=== PATIENT | male | born 1950 | race Caucasian/White ===

== ENCOUNTER 2017-07-17 06:39 | Day surgery (SDC) | payer MEDICARE, SELFPAY ==
[2017-07-17] VITALS (10 sets, daily range): BP systolic 105–147; BP diastolic 67–75; PULSE 70–86; RESP 16; TEMP 36.5–36.9; O2SAT 93–97; BMI 28.6
--- NOTE | 2017-07-17 07:53 | PCM.DC.APPY ---
Discharge Diet: No Restrictions Discharge Activity: Return to Normal Activity Call your doctor if your incision/area has: Continuous Slow Oozing, Sudden Increased Bleeding, Increased Pain/ Swelling, Increased Redness, Foul Smelling Discharge Call your doctor if you observe: Fever of 101 or Higher Medications to take at Discharge Oxycodone HCl/Acetaminophen [Percocet 5/325] 1 - 2 tablet PO Q4H PRN PRN 7 Days #15 tablet 07/17/17 Oxycodone HCl/Acetaminophen [Percocet 5/325] 1 - 2 tablet PO Q4H PRN PRN 7 Days #15 tablet 07/17/17 Allergies/Adverse Reactions: Allergies No Known Allergies Allergy (Verified 07/11/17 13:38) The following prescriptions were given: Oxycodone HCl/Acetaminophen [Percocet 5/325] 1 - 2 tablet PO Q4H PRN PRN 7 Days #15 tablet PRN Reason: Pain Oxycodone HCl/Acetaminophen [Percocet 5/325] 1 - 2 tablet PO Q4H PRN PRN 7 Days #15 tablet PRN Reason: Pain Primary Care Physician: Yunier Quinn MD [Primary Care Provider] - Please Follow Up With: Darryl Shirley MD When: call tomorrow to make 2 week follow up appt [phone]
--- NOTE | 2017-07-17 08:00 | MASS_PTH ---
PATIENT: ALON MURPHY [place] [facility] [place][id number] AGE/SX: 66/M ROOM: RE07/17/[address]: Dr. Darryl Shirley MD : 1950 BED: DIS: 07/17/2017 SPEC #: [id number] RECD: 07/17/17 10:32 STATUS: JESSE RELewis #: [id number] LIZETH: 07/17/17 08:[address]: Darryl Shirley DEPT: SURGICAL PATHOLOGY RECD BY: Nico Patterson ENTERED: 07/17/17 13:13 SP TYPE: Mass OTHR DR: Dr. Yunier Quinn MD Tissues: Back, NOS Procedures: Surgery Specimen Level IV HEADER OPERATION: Excision subcutaneous mass, right lower back PRE-OP DIAGNOSIS: Subcutaneous mass, right lower back; right-sided low back pain without sciatica TISSUE SUBMITTED: Subcutaneous mass, right lower back MICROSCOPIC DIAGNOSIS Subcutaneous mass, right lower back, excision: Mature adipose tissue, consistent with lipoma. SAMSON:indra 07/18/17 MICROSCOPIC DESCRIPTION Slides are reviewed. GROSS DESCRIPTION Received in fixative is one container labeled with the patient's name and designated subcutaneous mass, right lower back. The specimen consists of five variable size pieces of yellow adipose soft tissue that in aggregate measure 3.5 x 4 x 1.5 cm. Sections reveal yellow adipose cut surfaces without area of hemorrhage, cystic degeneration or necrosis. Director Of [employer] sections are submitted in two cassettes. / SAMSON:indra 07/17/17 TC:1 CPT: 96355
--- NOTE | 2017-07-17 08:17 | PCM.OPRPT ---
Problem List (1) Localized swelling, mass and lump, trunk Status: Acute Report of Operation Date of Procedure: 07/17/17 Pre-Operative Diagnosis: Right lower back subcutaneous mass Post-Operative Diagnosis: Same Surgery/Procedure Performed:: Excision of subcutaneous right lower back mass, deep Specimen's removed: Right lower back subcutaneous mass, 4-5 cm Description of Procedure: The patient was brought back to the operating room and placed in the left lateral decubitus position. Next MAC anesthesia was induced and the right lower back was prepped and draped in usual sterile fashion. An incision site was marked and then anesthetized with Marcaine. Next an incision was made and carried down to the deep fascia. The mass was encountered and dissected free using electrocautery and removed. It measured about 4 cm. There was also deep to the dermal fascia. the cavity was irrigated and suctioned dry. Hemostasis was obtained using electrocautery. Next the deep dermal tissue was closed with interrupted 3-0 Vicryl sutures. The skin was closed with a running 4-0 Monocryl suture and Steri-Strips. Bandages were then applied. The patient tolerated the procedure well and was brought to PACU in stable condition.
== END 2017-07-17 09:45 | disposition home or self-care (01) ==
LOC: SDC 06:40 → AC 06:42
PROVIDERS: Family Provider Family Medicine; PCP Family Medicine; Visit Provider Surgery
PROC: (CPT 11404; principal; 2017-07-17 07:45)
DX: D17.1 Benign lipomatous neoplasm of skin and subcutaneous tissue of trunk (principal); M19.90 Unspecified osteoarthritis, unspecified site
CPT/HCPCS: 11404; 12032; 88305; J7120; J2405

== ENCOUNTER → 2019-01-08 | Outpatient (CLI) | payer MEDICARE, SELFPAY ==
--- NOTE | 2019-01-08 15:01 | RAD_ITS ---
STUDY: X-RAY - CERVICAL SPINE REASON FOR EXAM: Male, 68 years old. Radiculopathy. TECHNIQUE: 6 view(s) of the cervical spine were obtained. COMPARISON: None FINDINGS: Normal anterior atlantoaxial articulation. Normal odontoid process. Normal cervical lordosis. There is mild endplate spondylosis and disc space narrowing most marked in the lower cervical spine. There is no evidence of acute fracture or loss of vertebral axial height. Normal visualized intervertebral neuroforamina. There is maintenance of normal alignment. The soft tissue structures are unremarkable. RAD/Cerv Spine 4 or 5 Views IMPRESSION: Degenerative changes of the lower cervical spine. Electronically Signed: Reginald Mccall DO at 18:15 EDT Tel [phone], Service support ,
== END | disposition home or self-care (01) ==
LOC: HPRAD 14:56
PROVIDERS: Family Provider Family Medicine; PCP Family Medicine; Referring Provider Family Medicine; Visit Provider Family Medicine
DX: M54.12 Radiculopathy, cervical region (principal); E11.9 Type 2 diabetes mellitus without complications; E78.5 Hyperlipidemia, unspecified
CPT/HCPCS: 36415; 72050; 80053; 84439; 84443; 85025

== ENCOUNTER → 2019-01-08 | Outpatient (CLI) | payer MEDICARE, SELFPAY ==
[2019-01-08 15:46] LABS: Absolute Lymphocyte Count 1.48 X10^3/uL (0.83-4.51); Basophil# 0.03 X10^3/uL; Basophil% 0.4 % (0-1); Eosinophil# 0.12 X10^3/uL; Eosinophils% 1.6 % (0-5); Hematocrit 45.6 % (40-54); Hemoglobin 14.5 g/dL (13.0-16.5); Lymphocyte # 1.48 X10^3/ul (4.0); Lymphocyte % 20.3 % (19-41); Mean Corp Hgb Conc 31.8 g/dL (32-36); Mean Corpuscular Volume 88.2 fL (80-94); Mean Platelet Vol. 9.4 fl (6.2-12.0); Monocyte# 0.63 X10^3/uL; Monocyte% 8.6 % (0-10); NRBC Flagged by Analyzer 0 % (0-5); Neutrophil % 68.7 % (47-70); Platelet Count 323 K/mm3 (150-450); RBC Distribution Width CV 12.8 % (11.6-14.6); RBC Distribution Width SD 41.6 fl (35.1-43.9); Red Blood Count 5.17 M/mm3 (4.6-6.2); White Blood Count 7.3 K/mm3 (4.4-11.0)
[2019-01-08 16:20] LABS: ALB/GLOB Ratio 0.9 RATIO (0.9-2.4); AST(SGOT) 16 U/L (15-37); Alanine Aminotransfer ALT/SGPT 19 U/L (16-61); Albumin, Serum 3.7 g/dL (3.2-5.0); Alkaline Phosphatase 81 U/L (45-117); Anion Gap 7 (5-15); BUN 23 mg/dL (7-18); BUN/Creat Ratio 16.2 RATIO (10-20); Calcium,Total 8.9 mg/dL (8.5-10.1); Chloride 109 mmol/L (98-107); Creatinine, Serum 1.42 mg/dL (0.70-1.30); EST Glomerular Filtration Rate 53 mL/min (>60); Est Glom Filt Rate - Afr Amer 64 mL/min (>60); Globulin 4.3 g/dL (2.2-4.2); Glucose 105 mg/dL (74-106); Potassium 3.8 mmol/L (3.5-5.1); Sodium Level 141 mmol/L (136-145); T4 Free Direct 1.13 ng/dL (0.76-1.46); Thyroid Stim Hormone (TSH) 0.93 uIU/mL (0.358-3.74)
== END | disposition home or self-care (01) ==
LOC: BFHLAB 14:17
PROVIDERS: Family Provider Family Medicine; PCP Family Medicine; Visit Provider Family Medicine
DX: E78.5 Hyperlipidemia, unspecified (principal)
CPT/HCPCS: 36415; 80053; 84439; 84443; 85025

== ENCOUNTER 2019-04-22 10:30 | Outpatient (RCR) | payer MEDICARE, SELFPAY ==
--- NOTE | 2019-03-21 11:31 | HP.PTEVAL ---
Patient's Visit Information ALON MURPHY is a 68 year old M referred to Physical Therapy by Yunier Quinn MD with a diagnosis of NECK PAIN. Date of Evaluation: 03/20/19 Physical Therapist: Rebeka Hummel PT, Cert MDT - Visit Plan Frequency: 1-2x /Week Duration: 4-6 Weeks Plan: US, POSTURE CORRECTION/STRENGTHENING, INSTRUCTION IN APPROPRIATE BODY MECHANICS AND ACTIVITY MODIFICATIONS. BENJIE UE ROM, STRETCHING AND STRENGTHENING. HEP INSTRUCTION. CONSIDER TRACTION. - Subjective Findings: Work/Leisure: RETIRED. [employer] OF [email or web address] IN [place]. WAS A [employer]. 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 Disability: NO. Present symptoms: BENJIE HAND NUMBNESS AND TINGLING. HANDS ALSO FEEL WEAK. HAND NUMBNESS VARIES IN INTENSITY BUT CONSTANT. WORSE AT NIGHT AFTER SLEEPING A COUPLE HOURS ON EITHER SIDE. Present since: ABOUT 6 MONTHS. Pain Scale: N/A. Currently: N/A. WORSENING. SX'S IN HANDS HAVE BECOME CONSTANT IN LAST FEW WEEKS. Commenced as a result of: SLEEPING ON EITHER SIDE. CAME ON GRADUAL. Symptoms at onset: BENJIE THUMB FINGER THAT PROGRESSED TO THE REST OF HANDS. Worse: SLEEPING ON EITHER SIDE. NIGHT IS THE WORST. Better: SLEEPING ON BACK, UP AND ACTIVE. Disturbed sleep: YES. Previous history/Previous treatment: UNREMARKABLE. Dizziness: NO. Tinnitis: NO. Nausea: NO. Shortness of Breath: NO. Difficulty Swollowing: NO. Gait: NORMAL. Accidents: UNREMARKABLE. Unexplained weight loss: NO. Imaging: NECK X-RAY - Normal anterior atlantoaxial articulation. Normal odontoid process. Normal cervical lordosis. There is mild endplate spondylosis and disc. space narrowing most marked in the lower cervical spine. There is no. evidence of acute fracture or loss of vertebral axial height. Normal. visualized intervertebral neuroforamina. There is maintenance of normal. alignment. The soft tissue structures are unremarkable. RAD/Cerv Spine 4 or 5 Views. IMPRESSION: Degenerative changes of the lower cervical spine. PMH/Recent major surgery: LEFT ELBOW CRUSH INJURY IN HIGH [employer]CHO[employer] - ELBOW FLEX TO ABOUT 90 DEG NOW. OTHER: NEUROMUSCULAR SPECIALIST VISIT IN [place] FOR MASSAGE, STRETCHING AND STRENGTHENING THAT DID NOT HELP ABOUT 6 WEEKS AGO. - Objective Sitting Posture/Standing Posture: POOR. FH. RS. VERY SLOUCHED IN SITTING. Active Correction of posture: NE. Other Observations: INDEP GAIT AND TRANSFERS. Motor deficit: BENJIE UE'S 5/5 WITH MMT'ING AND BENJIE DATA PROCESSING MECHANIC STRENGTH 75 LBS. PATIENT IS RIGHT HAND DOMINANT. Sensory deficit: BENJIE UE LIGHT TOUCH SENSTATION IS INTACT AND SYMMETRICAL. ROM deficit: BENJIE UE'S WFL - LEFT ELBOW LIMITED FLEX FROM OLD INJURY. Reflexes: UNABLE TO ELICIT BENJIE UE DTR'S. Dural Signs: POSITIVE BENJIE UE'S. Cervical Mvmt Loss: Flex: NIL. Pro: NIL. Ext: MOD. Ret: MOD. RSB: MOD. LSB: MOD. R Rot: MIN. L Rot: MIN. Postural strength: POOR. CERVICAL DISTRACTION: MIN DECREASED BENJIE HAND SX'S. - Goals Goal 1:: DECREASE C/O BENJIE HAND SX'S. Goal Time Frame: 4-6 Weeks Goal 2:: IMPROVE SLEEP FUNCTION Goal Time Frame: 4-6 Weeks Goal 3:: INSTRUCT IN PROPHYLAXIS Goal Time Frame: 4-6 Weeks - Rehabilitation Potential Rehabilitation Potential: Fair - Anticipated Interventions Patient/Client Instruction: Educate patient on: Condition, Plan of Care, Risk Factors, Benefits of Fitness Program For the Purpose of:: To improve self management Therapeutic Exercise to Include: Strength training, Endurance training, Body mechanics, Postural training, Scapular Strength/Stabilization For the Purpose of:: To decrease pain, To increase ROM, To improve muscle performance and motor function, To increase tolerance to activity/condition/position, To improve ability of physical actions for home/community/work/leisure Ultrasound (thermal/non thermal): Yes For the Purpose of:: To decrease pain, To decrease swelling/inflammation, To improve nutrient delivery to tissue Thank you for the opportunity to evaluate your patient. For Medicare and Medicare HMO plans, please review the plan of care and approve it. It will need to be FAXED BACK to us at [phone] for Medicare purposes. For Medicare only, by signing this I certify the plan of care. Please let me know if there are questions or concerns regarding this plan of care. Physician Signature: Date:
--- NOTE | 2019-07-11 15:14 | HP.PTDCNRP_ITS ---
ALON Genet ASHLEYSally was seen in my office for initial evaluation on 03/20/19. The following Plan of Care was established for this patient: Initial Frequency: 1-2x /Week Initial Duration: 4-6 Weeks Patient/Client Instruction: Educate patient on: Condition, Plan of Care, Risk Factors, Benefits of Fitness Program For the Purpose of:: To improve self management Therapeutic Exercise to Include: Strength training, Endurance training, Body mechanics, Postural training, Scapular Strength/Stabilization For the Purpose of:: To decrease pain, To increase ROM, To improve muscle performance and motor function, To increase tolerance to activity /condition/position, To improve ability of physical actions for home/community/work/leisure Ultrasound (thermal/non thermal): Yes For the Purpose of:: To decrease pain, To decrease swelling/inflammation, To improve nutrient delivery to tissue This patient was last seen in our office 04/22/19. Pertinent comments regarding their Physical therapy will appear below: This patient has not returned to Physical Therapy and is appropriate to return to MD for further follow-up as needed. At this point I will be discontinuing this patient from physical therapy. I would be happy to see this patient again in the future if found appropriate by the physician. Thank you! Rebeka Hummel, PT, Cert MDT
== END 2019-04-22 19:00 | disposition home or self-care (01) ==
LOC: PT 10:30
PROVIDERS: Family Provider Family Medicine; PCP Family Medicine; Referring Provider Family Medicine; Visit Provider Family Medicine
DX: M50.30 Other cervical disc degeneration, unspecified cervical region (principal)
CPT/HCPCS: 97012; 97035; 97110; 97140; 97162; 97530

== ENCOUNTER → 2019-09-09 08:16 | Outpatient (CLI) | payer MEDICARE, SELFPAY ==
[2017-07-17 07:18] VITALS: BMI 28.6
[2019-09-09 10:15] LABS: Hemoglobin A1c 7.1 % (3.8-5.6)
== END ==
PROVIDERS: PCP Family Medicine; Referring Provider Physician Assistant; Visit Provider Physician Assistant
DX: E11.9 Type 2 diabetes mellitus without complications (principal)
CPT/HCPCS: 36415; 83036

== ENCOUNTER → 2022-07-11 | Outpatient (CLI) | payer MEDICARE, SELFPAY ==
[2022-07-11 17:57] LABS: Absolute Lymphocyte Count 1.38 X10^3/uL (0.83-4.51); Absolute Neutrophil Count 4.4 X10^3/uL (2.0-7.7); Basophil# 0.04 X10^3/uL; Basophil% 0.6 % (0-1); Eosinophil# 0.32 X10^3/uL; Eosinophils% 4.7 % (0-5); Hematocrit 43.7 % (40-54); Hemoglobin 13.8 g/dL (13.0-16.5); Lymphocyte # 1.38 X10^3/ul (0.83-4.51); Lymphocyte % 20.1 % (19-41); Mean Corp Hgb Conc 31.6 g/dL (32-36); Mean Corpuscular Hgb 28.6 pg (27.0-32.0); Mean Corpuscular Volume 90.7 fL (80-94); Mean Platelet Vol. 9.8 fl (6.2-12.0); Monocyte# 0.71 X10^3/uL; Monocyte% 10.3 % (0-10); NRBC Flagged by Analyzer 0 % (0-5); Neutrophil # 4.39 X10^3/uL (2.7-7.7); Neutrophil % 63.9 % (47-70); Platelet Count 291 K/mm3 (150-450); RBC Distribution Width CV 12.9 % (11.6-14.6); RBC Distribution Width SD 42.7 fl (35.1-43.9); Red Blood Count 4.82 M/mm3 (4.6-6.2); White Blood Count 6.9 K/mm3 (4.4-11.0)
[2022-07-11 18:51] LABS: Hemoglobin A1c 7.4 % (3.8-5.6)
[2022-07-11 18:53] LABS: ALB/GLOB Ratio 0.9 RATIO (0.9-2.4); AST(SGOT) 21 U/L (15-37); Alanine Aminotransfer ALT/SGPT 28 U/L (16-61); Albumin, Serum 3.6 g/dL (3.2-5.0); Alkaline Phosphatase 85 U/L (45-117); Anion Gap 5 (5-15); BUN 25 mg/dL (7-18); BUN/Creat Ratio 16.8 RATIO (10-20); Calcium,Total 9.5 mg/dL (8.5-10.1); Chloride 106 mmol/L (98-107); Cholesterol 143 mg/dL (200); Creatinine, Serum 1.49 mg/dL (0.70-1.30); EST Glomerular Filtration Rate 49 mL/min (>60); Est Glom Filt Rate - Afr Amer 60 mL/min (>60); Globulin 3.9 g/dL (2.2-4.2); Glucose 134 mg/dL (74-106); High Density Lipoprotein 42 mg/dL; PSA,Total - Annual Screen 6.13 ng/mL (0.00-4.00); Potassium 4.2 mmol/L (3.5-5.1); Protein, Total 7.5 g/dL (6.4-8.2); Sodium Level 138 mmol/L (136-145); Triglycerides 113 mg/dL; Very Low Density Lipoprotein 23 mg/dL (5-40)
[2022-07-11 19:01] LABS: Microalbumin,Random Urine 40.7 mg/L (NO RANGE EST.); Microalbumin:Creatinine Ratio 44.1 mg/g CRE (<30 mg/g CRE)
== END | disposition home or self-care (01) ==
LOC: BFHLAB 14:35
PROVIDERS: PCP Family Medicine; Referring Provider Family Medicine; Visit Provider Family Medicine
DX: R31.9 Hematuria, unspecified (principal); E11.9 Type 2 diabetes mellitus without complications; E78.5 Hyperlipidemia, unspecified; Z12.5 Encounter for screening for malignant neoplasm of prostate
CPT/HCPCS: 36415; 80053; 80061; 82043; 82570; 83036; 84153; 85025; 87086; G0103

== ENCOUNTER → 2022-07-18 | Outpatient (CLI) | payer MEDICARE, SELFPAY ==
--- NOTE | 2022-07-18 07:14 | CT_ITS ---
STUDY: CT ABDOMEN AND PELVIS WITHOUT CONTRAST REASON FOR EXAM: Male, 71 years old. Intermittent gross hematuria for 5 weeks. History of prostatic enlargement and kidney stones. RADIATION DOSAGE (If Supplied By Facility): CTDIvol = ( 15.27 ) mGy, DLP = ( 820.37 ) mGycm TECHNIQUE: Transaxial images were obtained from the dome of the diaphragm to the symphysis pubis without oral contrast, and without intravenous contrast. Sagittal and coronal images were reconstructed. Individualized dose optimization techniques were used for this CT. COMPARISON: None. FINDINGS: Minimal increased linear markings in the posterior medial segment of the right lower lobe suggests some mild scarring. Tiny calcified granuloma in the posterior medial aspect of the right lower lobe. The visualized portions of the heart are within normal limits. Normal liver. Normal gallbladder and extrahepatic biliary system. Normal spleen. Normal pancreas. Normal bilateral adrenal glands. Questionable 1.2 cm cyst in the posterior midportion of the right kidney. 2 mm nonobstructive calculus in the upper pole calyx of the left kidney. I suspect a 1.5 cm cyst in the posterior midportion of the left kidney. There is a small hiatal hernia. Normal small intestine. There are multiple colonic diverticula consistent with diverticulosis. The appendix is visualized and appears normal. There is scattered atherosclerotic calcification of the abdominal aorta, without a demonstrated aneurysm. Normal inferior vena cava. Normal retroperitoneum. Normal urinary bladder. There is enlargement of the prostate gland. It measures 4.9 cm x 4.9 cm. This causes an indentation at the bladder base. Calcified phleboliths are seen in the pelvis. There is a right-sided inguinal hernia containing adipose tissue. There are degenerative changes of the visualized lumbar spine. Grade 1 anterolisthesis of L5 on S1 with spondylolysis of the pars interarticularis of the L5 vertebrae. CT/Abdomen/Pelvis without Cont IMPRESSION: Findings suggestive of small bilateral renal cysts are 2 mm nonobstructive calculus in the right kidney. Prostatic enlargement. Electronically Signed: Roberto Zamora MD at 14:54 EDT ,
== END | disposition home or self-care (01) ==
LOC: CT 07:12
PROVIDERS: PCP Family Medicine; Visit Provider Family Medicine
DX: R31.9 Hematuria, unspecified (principal)
CPT/HCPCS: 74176

== ENCOUNTER → 2023-04-23 | Outpatient (CLI) | payer MEDICARE, SELFPAY ==
[2023-04-23 12:20] LABS: Absolute Neutrophil Count 3.6 X10^3/uL (2.0-7.7); Basophil# 0.03 X10^3/uL; Basophil% 0.5 % (0-1); Eosinophils% 5.2 % (0-5); Hematocrit 46.1 % (40-54); Hemoglobin 14.2 g/dL (13.0-16.5); Lymphocyte % 20.9 % (19-41); Mean Corp Hgb Conc 30.8 g/dL (32-36); Mean Corpuscular Volume 90.7 fL (80-94); Mean Platelet Vol. 9.8 fl (6.2-12.0); Monocyte# 0.56 X10^3/uL; Monocyte% 9.8 % (0-10); NRBC Flagged by Analyzer 0 % (0-5); Neutrophil # 3.63 X10^3/uL (2.7-7.7); Neutrophil % 63.4 % (47-70); Platelet Count 300 K/mm3 (150-450); RBC Distribution Width CV 13.2 % (11.6-14.6); RBC Distribution Width SD 43.9 fl (35.1-43.9); Red Blood Count 5.08 M/mm3 (4.6-6.2); White Blood Count 5.7 K/mm3 (4.4-11.0)
[2023-04-23 13:10] LABS: ALB/GLOB Ratio 0.9 RATIO (0.9-2.4); AST(SGOT) 22 U/L (15-37); Alanine Aminotransfer ALT/SGPT 28 U/L (16-61); Albumin, Serum 3.5 g/dL (3.2-5.0); Alkaline Phosphatase 99 U/L (45-117); Anion Gap 3 (5-15); BUN 24 mg/dL (7-18); BUN/Creat Ratio 15.2 RATIO (10-20); Calcium,Total 9.5 mg/dL (8.5-10.1); Chloride 109 mmol/L (98-107); Cholesterol 146 mg/dL (200); Creatinine, Serum 1.58 mg/dL (0.70-1.30); EST Glomerular Filtration Rate 46 mL/min (>60); Est Glom Filt Rate - Afr Amer 56 mL/min (>60); Glucose 123 mg/dL (74-106); High Density Lipoprotein 44 mg/dL; Potassium 4.6 mmol/L (3.5-5.1); Protein, Total 7.5 g/dL (6.4-8.2); Sodium Level 140 mmol/L (136-145); Triglycerides 103 mg/dL; Very Low Density Lipoprotein 21 mg/dL (5-40)
[2023-04-23 14:17] LABS: Hemoglobin A1c 7.1 % (3.8-5.6)
== END | disposition home or self-care (01) ==
LOC: BFHLAB 08:40
PROVIDERS: PCP Family Medicine; Visit Provider Family Medicine
DX: E78.5 Hyperlipidemia, unspecified (principal); E11.22 Type 2 diabetes mellitus with diabetic chronic kidney disease; N18.31 Chronic kidney disease, stage 3a
CPT/HCPCS: 36415; 80053; 80061; 83036; 85025

== ENCOUNTER 2024-03-07 14:55 | Emergency (ER) | payer MEDICARE, SELFPAY ==
[2024-03-07 14:56] VITALS: BP 164/88; PULSE 88; RESP 18; TEMP 36.3; O2SAT 97; BMI 27.6
[2024-03-07] MEDS: Diphth,Pertuss(Acell),Tet Vac 0.5 ML Vial IM (15:56)
[2024-03-07] MEDS: Ibuprofen 200 MG Tablet 400 MG PO (15:56)
--- NOTE | 2024-03-07 15:58 | EDS_ITS ---
HPI History of Present Illness Chief Complaint: Laceration Informant: patient Narrative Narrative: Patient is a [id number] male not any blood thinners presenting with left index finger laceration. Patient was using a table saw when he accidentally cut end of his left index finger. This happened around approximately 230 this afternoon. Denies associated numbness or tingling. Does have some associated pain but states it is mild. Did not take anything for pain prior to arrival. No other complaints or concerns reported at this time. Bleeding is currently controlled. Tetanus Immunization: Unknown [facility] Medical History (Updated 03/07/24 @ 16:[address] Mary Wagoner DO) Osteoarthritis Allergy/AdvReac Type Severity Reaction Status Date / Time No Known Allergies Allergy Verified 03/07/24 14:56 Family History Mother Hypertension Brother Cancer renal cancer Surgical History S/P excision of lipoma Status post prostatectomy S/P hernia repair S/P colonoscopy Social History Smoking Status: Never smoker ROS ROS ED Constitutional Constitutional ED: Denies chills or fever(s) Gastrointestinal Gastrointestinal: Denies nausea Musculoskeletal Musculoskeletal: Reports other Details: Left index finger pain Integumentary Reports other Details: Left index finger laceration Neurologic Neurologic: Denies paresthesias or weakness Hematologic/Lymphatic Hematologic/Lymphatic: Denies easy bleeding or easy bruising EXAM Physical Exam Const Vital Signs: 03/07/24 14:56 Temperature 97.4 F L Temperature Source Temporal Pulse Rate 88 Respiratory Rate 18 Blood Pressure 164/88 H Blood Pressure Mean 113 Pulse Ox 97 Oxygen Delivery Method Room Air Positive well nourished and well developed General Appearance ED: well developed and NAD HEENT Reports moist mucous membranes Chest Wall inspection of chest normal Cardio regular rate and regular rhythm Cardio Narrative: 2+ radial pulses Extremity Extremity Narrative: Normal range of motion of the left index finger. Normal extensor and flexion mechanisms. Neuro oriented x3, no focal motor deficits and no sensory deficits noted Sensorium / Orientation: alert Motor Exam: muscle tone normal throughout Psych mental status grossly normal Skin Skin Narrative: Full-thickness avulsion injury along the distal aspect of the left index finger involving the distal phalanges and cut into the distal aspect of the nail but no involvement of the nail bed. No active bleeding at this time. No bony exposure present. No foreign bodies appreciated. MDM MDM MDM Narrative Medical decision making narrative: Patient is evaluated for left index finger laceration. Is an avulsion injury. Is not amenable to any suture repair. Bleeding is currently controlled. Will obtain x-ray to ensure there is no bony involvement. Will cleanse the wound with antiseptic soak and apply bacitracin ointment as well as an adhesive dressing. Tetanus is updated. Patient given dose of Motrin in the emergency room. Discussed generalized wound care and general course of healing for this. Discussed return precautions as well as signs of infection. Encouraged to follow-up with his primary care doctor for wound check next week. X-ray viewed by myself as well as radiology does not show any acute fracture. Discharge Plan Triage Chief Complaint: Laceration ED Provider: Mary Wagoner Dx/Rx/DC Orders Clinical Impression: Laceration of left index finger without foreign body with damage to nail, Need for mrxapgymbs-cqgbnlv-jrgfrhjaw (Tdap) vaccine Instructions: ED Laceration Superficial No Stitch, ED Skin Tear (Skin Avulsion) Primary Care Provider: Jarrod Foss Referrals: Jarrod Foss DO [Primary Care Provider] - Activity Restrictions/Additional Instructions: There is nothing to suture. Your nail is often infected and likely the nail will continue to grow but might be permanently deformed. When you change your dressings (once a day), use a nonadhesive bandage and use a liberal amount of bacitracin ointment or petroleum jelly to prevent sticking to the wounds. Alternate ibuprofen and Tylenol as needed for pain. Print Language: Slovenian Disposition Disposition: Home, Self Care Discharge Date/Time: 03/07/24 16:47
--- NOTE | 2024-03-07 16:00 | RAD_ITS ---
STUDY: X-RAY - LEFT HAND, ATTENTION INDEX FINGER REASON FOR EXAM: Male, 73 years old. Injury/Pain -- index finger TECHNIQUE: 3 view(s) of the finger were obtained. COMPARISON: None. FINDINGS: Normal metacarpal head. Normal metacarpophalangeal joint. Normal proximal phalanx. Normal middle phalanx. Normal distal phalanx. Normal proximal interphalangeal joint. There is mild degenerative arthrosis of the distal interphalangeal joint. There is no demonstrated fracture. RAD/Finger(s) Min 2 Views IMPRESSION: No definite acute or significant abnormality seen. Electronically Signed: Jay Hackett MD at 16:43 EST ,
[2024-03-07 16:43] VITALS: BP 148/99; PULSE 88; RESP 18; TEMP 36.3; O2SAT 97
== END 2024-03-07 16:47 | disposition home or self-care (01) ==
PROVIDERS: Emergency Provider Emergency Medicine; PCP Family Medicine; Visit Provider Emergency Medicine
DX: S61.311A Laceration without foreign body of left index finger with damage to nail, initial encounter (principal); W31.2XXA Contact with powered woodworking and forming machines, initial encounter; Z23 Encounter for immunization
CPT/HCPCS: 73140; 90715; 99284

== ENCOUNTER → 2024-05-19 | Outpatient (CLI) | payer MEDICARE, SELFPAY ==
[2024-05-19 12:20] LABS: Absolute Lymphocyte Count 1.22 X10^3/uL (0.83-4.51); Basophil# 0.03 X10^3/uL; Basophil% 0.5 % (0-1); Eosinophil# 0.49 X10^3/uL; Eosinophils% 7.7 % (0-5); Hemoglobin 13.6 g/dL (13.0-16.5); Lymphocyte # 1.22 X10^3/ul (0.83-4.51); Lymphocyte % 19.2 % (19-41); Mean Corp Hgb Conc 32.4 g/dL (32-36); Mean Corpuscular Hgb 29.2 pg (27.0-32.0); Mean Corpuscular Volume 90.1 fL (80-94); Monocyte# 0.63 X10^3/uL; Monocyte% 9.9 % (0-10); NRBC Flagged by Analyzer 0 % (0-5); Neutrophil # 3.96 X10^3/uL (2.7-7.7); Neutrophil % 62.4 % (47-70); Platelet Count 294 K/mm3 (150-450); RBC Distribution Width CV 12.7 % (11.6-14.6); RBC Distribution Width SD 41.9 fl (35.1-43.9); Red Blood Count 4.66 M/mm3 (4.6-6.2); White Blood Count 6.4 K/mm3 (4.4-11.0)
[2024-05-19 13:19] LABS: Microalbumin,Random Urine 30.9 mg/L (NO RANGE EST.); Microalbumin:Creatinine Ratio 30.6 mg/g CRE (<30 mg/g CRE)
[2024-05-19 16:13] LABS: ALB/GLOB Ratio 0.9 RATIO (0.9-2.4); AST(SGOT) 19 U/L (15-37); Alanine Aminotransfer ALT/SGPT 28 U/L (16-61); Albumin, Serum 3.6 g/dL (3.2-5.0); Alkaline Phosphatase 100 U/L (45-117); Anion Gap 7 (5-15); BUN 24 mg/dL (7-18); BUN/Creat Ratio 15.2 RATIO (10-20); Calcium,Total 9.3 mg/dL (8.5-10.1); Chloride 108 mmol/L (98-107); Cholesterol 155 mg/dL (200); Creatinine, Serum 1.58 mg/dL (0.70-1.30); EST Glomerular Filtration Rate 46 mL/min (>60); Est Glom Filt Rate - Afr Amer 56 mL/min (>60); Globulin 3.9 g/dL (2.2-4.2); Glucose 126 mg/dL (74-106); High Density Lipoprotein 52 mg/dL; PSA,Total - Annual Screen 5.13 ng/mL (0.00-4.00); Potassium 4.7 mmol/L (3.5-5.1); Protein, Total 7.5 g/dL (6.4-8.2); Sodium Level 141 mmol/L (136-145); Triglycerides 87 mg/dL; Very Low Density Lipoprotein 17 mg/dL (5-40)
== END | disposition home or self-care (01) ==
LOC: BFHLAB 10:51
PROVIDERS: PCP Family Medicine; Referring Provider Family Medicine; Visit Provider Family Medicine
DX: E11.22 Type 2 diabetes mellitus with diabetic chronic kidney disease (principal); N18.31 Chronic kidney disease, stage 3a; I12.9 Hypertensive chronic kidney disease with stage 1 through stage 4 chronic kidney disease, or unspecified chronic kidney disease; Z12.5 Encounter for screening for malignant neoplasm of prostate
CPT/HCPCS: 36415; 80053; 80061; 82043; 82570; 83036; 84153; 85025; G0103

== ENCOUNTER → 2024-09-04 | Outpatient (CLI) | payer MEDICARE, SELFPAY ==
--- NOTE | 2024-09-04 11:09 | FLU_PTH ---
PATIENT: ALON MURPHY LOC: [facility] U#:[id number] AGE/SX: 73/M ROOM: RE09/04/[address]: Dr. Jarrod Foss DO : 1950 BED: DIS: 09/04/2024 SPEC #: [id number] RECD: 09/04/24 13:30 STATUS: JESSE RELewis #: [id number] LIZETH: 09/04/24 11:[address]: Jarrod Foss DEPT: CYTOLOGY RECD BY: Leno Walsh Tissues: A - Urine Procedures: Special Stain Group II Surgery Specimen Level IV Cytospin Fluid HEADER OPERATION: Not noted PRE-OP DIAGNOSIS: Hematuria TISSUE SUBMITTED: A- Urine for cytology *voided* DIAGNOSIS CYTOLOGY A. Urine (cytospoin): * Atypical urothelial cells present. CYTOLOGY STUDY Slides are reviewed. CYTOLOGY GROSS A. Received is 40 ml of yellow-cloudy fluid labeled with the patient's name and and designated per the requisition as urine. Submitted for cytology preparation. Mr 09/04/2024 CPT: 87453
[2024-09-04 13:42] LABS: Cytology, Body Fluid / CSF SEE PATHOLOGY REPORT
[2024-09-04 14:16] LABS: Color, Urine Yellow (Yellow); Glucose, Dipstick 50 mg/dl (Normal); Ketone-Dipstick Negative (Negative); Leukocyte Esterase-Dipstick Negative /ul (Negative); Nitrite-Dipstick Negative (Negative); Occult Blood-Urine 10 /ul (Negative); Protein-Dipstick 15 mg/dl (Negative); Urine Bilirubin Dipstick Negative (Negative); Urine Clarity Clear (Clear); Urine Urobilinogen Normal (Normal)
== END | disposition home or self-care (01) ==
PROVIDERS: PCP Family Medicine; Referring Provider Family Medicine; Visit Provider Family Medicine
DX: R31.9 Hematuria, unspecified (principal)
CPT/HCPCS: 81002; 87086; 88108; 88305; 88313